=== PATIENT | male | born 1965 | race Caucasian/White ===

== ENCOUNTER 2018-02-14 08:31 | Emergency (ER) | payer BC ==
[2018-02-14 08:47] VITALS: RESP 18
[2018-02-14] MEDS ORDERED: ONDANSETRON ODT 4 MG TAB PO STA (09:04)
[2018-02-14] MEDS ORDERED: SODIUM CHLORIDE 0.9% 1,000 ML IV STA (09:04)
[2018-02-14] MEDS ORDERED: RX INFO: IV CONTRAST WAS GIVEN 1 EACH MISC MISCELLANE PRN (09:04)
[2018-02-14] MEDS ORDERED: MORPHINE SULFATE 4 MG/ML SYRINGE IVP STA (09:05)
--- NOTE | 2018-02-14 09:26 | ED ---
General Adult HPI - General Chief complaint: Extremity Injury, Upper Stated complaint: Head/Back Injury Time Seen by Provider: 02/14/18 08:51 Source: patient, RN notes reviewed Mode of arrival: wheelchair Limitations: no limitations - History of Present Illness Initial comments: Patient 52-year-old male presenting to the emergency room today with a chief complaint of right-sided rib pain. Patient was met that last night he was changing the oil on his truck when it slipped off the [place] came down and landed on the right ribs. He states he sought, normal strength all the way. He states he did not hit his head. He denies any loss conscious. States the truck bounced down on him and he was able to get out from underneath. He states truck did not pin him. Patient admits to pain locally to right lower ribs. Worse with certain movements or if he coughs or sneezes. Patient denies any other complaints. Patient denies any recent fever, chills, shortness of breath, chest pain, back pain, nausea or vomiting, numbness or tingling, dysuria or hematuria, headaches or visual changes, or any other complaints. - Related Data Home Medications Medication Instructions Recorded Confirmed Fish Oil/Dha/Epa [Fish Oil 1,200 1 cap PO DAILY 05/12/14 02/14/18 mg Fish Oil] Lisinopril-Hctz 20-25 mg 1 tab PO DAILY 05/12/14 02/14/18 [Zestoretic 20-25] Aspirin EC [Ecotrin Low Dose] 81 mg PO DAILY 02/14/18 02/14/18 Atorvastatin [Lipitor] 80 mg PO HS 02/14/18 02/14/18 Metoprolol Succinate (ER) [Toprol 100 mg PO DAILY 02/14/18 02/14/18 Xl] Multivitamins, Thera [Multivitamin 1 tab PO DAILY 02/14/18 02/14/18 (formulary)] Previous Rx's Medication Instructions Recorded Ibuprofen [Motrin] 800 mg PO Q6HR #40 tab 02/14/18 Allergies Allergy/AdvReac Type Severity Reaction Status Date / Time No Known Allergies Allergy Verified 02/14/18 09:12 Review of Systems ROS Statement: Those systems with pertinent positive or pertinent negative responses have been documented in the HPI. ROS Other: All systems not noted in ROS Statement are negative. Past Medical History Past Medical History: Hypertension History of Any Multi-Drug Resistant Organisms: None Reported Past Surgical History: Hernia Repair, Orthopedic Surgery Past Psychological History: No Psychological Hx Reported Smoking Status: Current every day smoker Past Alcohol Use History: Occasional Past Drug Use History: None Reported General Exam - General Exam Comments Initial Comments: General: The patient is awake and alert, in no distress, and does not appear acutely ill. Eye: Pupils are equal, round and reactive to light, extra-ocular movements are intact. No nystagmus. There is normal conjunctiva bilaterally. No signs of icterus. Ears, nose, mouth and throat: There are moist mucous membranes and no oral lesions. Neck: The neck is supple, there is no tenderness or JVD. Cardiovascular: There is a regular rate and rhythm. No murmur, rub or gallop is appreciated. Respiratory: Lungs are clear to auscultation, respirations are non-labored, breath sounds are equal. No wheezes, stridor, rales, or rhonchi. Gastrointestinal: Normal appearance abdomen. No ecchymosis or bruising. Discomfort to the right upper quadrant. Locally tender over the ribs with some discomfort in the abdomen in this area. No rebound, guarding, or CVA tenderness. Musculoskeletal: Normal ROM. Normal appearance of the right ribs no step-off appreciated. Patient tender over the right lateral lower ribs. Strength 5/5. Sensation intact. Pulses equal bilaterally 2+. Neurological: A&O x 3. CN II-XII intact, There are no obvious motor or sensory deficits. Coordination appears grossly intact. Speech is normal. Skin: Skin is warm and dry and no rashes or lesions are noted. Psychiatric: Cooperative, appropriate mood & affect, normal judgment. Limitations: no limitations Course Vital Signs 02/14/18 02/14/18 08:44 10:56 Temperature 98.9 F Pulse Rate 89 69 Respiratory 18 18 Rate Blood Pressure 170/90 139/79 O2 Sat by Pulse 95 95 Oximetry Medical Decision Making - Medical Decision Making Patient's labs been reviewed. Patient's CT of the chest 7 pelvis reviewed does show fractures from the fourth to ninth rib on the right side. Does show a contracted gallbladder. Results were discussed with the patient. Patient at this time does not want stay in the hospital like to be discharged home. Patient states that he does not want anything else for pain other than ibuprofen. Patient is advised that she have repeat chest x-ray here advised to return to the emergency room symptoms increase or worsen. Patient will be given a prescription for repeat chest x-ray 5 spots doctor over the next 2 days. - Lab Data Result diagrams: 02/14/18 09:50 02/14/18 09:50 Lab Results 02/14/18 02/14/18 02/14/18 Range/Units 09:50 09:50 10:03 WBC 12.6 H (3.8-10.6) k/uL RBC 4.56 (4.30-5.90) m/uL Hgb 14.7 (13.0-17.5) gm/dL Hct 43.2 (39.0-53.0) % MCV 94.9 (80.0-100.0) fL MCH 32.2 (25.0-35.0) pg MCHC 33.9 (31.0-37.0) g/dL RDW 12.6 (11.5-15.5) % Plt Count 314 (150-450) k/uL Neutrophils % 61 % Lymphocytes % 28 % Monocytes % 5 % Eosinophils % 4 % Basophils % 1 % Neutrophils # 7.6 (1.3-7.7) k/uL Lymphocytes # 3.5 (1.0-4.8) k/uL Monocytes # 0.7 (0-1.0) k/uL Eosinophils # 0.5 (0-0.7) k/uL Basophils # 0.1 (0-0.2) k/uL Sodium 143 (137-145) mmol/L Potassium 4.4 (3.5-5.1) mmol/L Chloride 104 (98-107) mmol/L Carbon Dioxide 24 (22-30) mmol/L Anion Gap 15 mmol/L BUN 16 (9-20) mg/dL Creatinine 0.69 (0.66-1.25) mg/dL Est GFR (CKD-EPI)AfAm >90 (>60 ml/min/1.73 sqM) Est GFR (CKD-EPI)NonAf >90 (>60 ml/min/1.73 sqM) Glucose 107 H (74-99) mg/dL Calcium 9.6 (8.4-10.2) mg/dL Total Bilirubin 0.8 (0.2-1.3) mg/dL AST 49 (17-59) U/L ALT 67 (21-72) U/L Alkaline Phosphatase 85 (38-126) U/L Total Protein 7.3 (6.3-8.2) g/dL Albumin 4.6 (3.5-5.0) g/dL Urine Color Yellow Urine Appearance Clear (Clear) Urine pH 5.5 (5.0-8.0) Ur Specific [place] 1.017 (1.001-1.035) Urine Protein Negative (Negative) Urine Glucose (UA) Negative (Negative) Urine Ketones Negative (Negative) Urine Blood Negative (Negative) Urine Nitrite Negative (Negative) Urine Bilirubin Negative (Negative) Urine Urobilinogen <2.0 (<2.0) mg/dL Ur Leukocyte Esterase Negative (Negative) Disposition Clinical Impression: Multiple rib fractures Disposition: HOME SELF-CARE Condition: Good Additional Instructions: Please have repeat chest x-ray tomorrow. Please follow-up with the family doctor over the next 2 days. Please use pain medication as discussed return here to emergency room if any symptoms increase worsen. Prescriptions: Ibuprofen [Motrin] 800 mg PO Q6HR #40 tab Is patient prescribed a controlled substance at d/c from ED?: No Referrals: Pavan Triana DO [Primary Care Provider] - 1-2 days Time of Disposition: 11:53
[2018-02-14 10:01] LABS: Basophils # (A) 0.1 k/uL (0-0.2); Basophils % (A) 1 %; Eosinophils # (A) 0.5 k/uL (0-0.7); Eosinophils % (A) 4 %; HCT 43.2 % (39.0-53.0); HGB 14.7 gm/dL (13.0-17.5); Lymphocytes # (A) 3.5 k/uL (1.0-4.8); Lymphocytes % (A) 28 %; MCH 32.2 pg (25.0-35.0); MCHC 33.9 g/dL (31.0-37.0); MCV 94.9 fL (80.0-100.0); Mean Platelet Volume 6.7; Monocytes # (A) 0.7 k/uL (0-1.0); Monocytes % (A) 5 %; Neutrophils # (A) 7.6 k/uL (1.3-7.7); Neutrophils % (A) 61 %; Platelet Count 314 k/uL (150-450); RBC 4.56 m/uL (4.30-5.90); RDW 12.6 % (11.5-15.5); WBC 12.6 k/uL (3.8-10.6)
[2018-02-14 10:06] LABS: ALT 67 U/L (21-72); AST 49 U/L (17-59); Albumin 4.6 g/dL (3.5-5.0); Alkaline Phosphatase 85 U/L (38-126); Anion Gap 15 mmol/L; Blood Urea Nitrogen 16 mg/dL (9-20); Calcium 9.6 mg/dL (8.4-10.2); Carbon Dioxide 24 mmol/L (22-30); Chloride 104 mmol/L (98-107); Glucose 107 mg/dL (74-99); Potassium 4.4 mmol/L (3.5-5.1); Sodium 143 mmol/L (137-145); Total Bilirubin 0.8 mg/dL (0.2-1.3); Total Protein 7.3 g/dL (6.3-8.2)
[2018-02-14 10:26] LABS: Appearance,Urine Clear (Clear); Bilirubin,Urine Negative (Negative); Blood,Urine Negative (Negative); Color,Urine Yellow; Glucose,Urine (UA) Negative (Negative); Ketones,Urine Negative (Negative); Leukocyte Esterase,Urine Negative (Negative); Nitrite,Urine Negative (Negative); PH, Urine 5.5 (5.0-8.0); Protein,Urine Negative (Negative); Specific Gravity,Urine 1.017 (1.001-1.035); Urobilinogen,Urine <2.0 mg/dL (<2.0)
--- NOTE | 2018-02-14 11:24 | CT ---
EXAMINATION TYPE: CT ChestAbdPelvis w con DATE OF EXAM: 02/14/2018 COMPARISON: NONE HISTORY: 52-year-old male with right-sided pain, Crush injury to ribs TECHNIQUE: Contiguous axial scanning of the chest, abdomen, and pelvis performed with IV Contrast, pa tient injected with 100 ml mL of Isovue 300. Delayed images through the kidneys were obtained. Grullon l/sagittal reconstructions performed. CT DLP: 2251.6 mGycm Automated exposure control for dose reduction was used. FINDINGS: Chest: Heart normal size without pericardial effusion. Some nondependent air within the right ventricular ap ex likely from peripheral line placement. Aorta normal caliber with conventional chest branching anatomy. There is motion artifact along the ao rtic root and ascending aorta without evidence for dissection. No thoracic lymphadenopathy or mediastinal hematoma. No consolidation, pneumothorax, or pleural effusion. Mild dependent atelectasis is noted. ABDOMEN: Liver enlarged measuring 23.8 cm craniocaudal with diffuse low-attenuation. There is some focal fatty sparing along the lisa hepatis and gallbladder fossa. Gallbladder is hydropic measuring 5.1 cm wide. No surrounding inflammation or wall thickening. Minimal 1.1 cm nodularity along the right adrenal gland statistically represents a benign adrenal kyle noma. The left adrenal gland, spleen, and pancreas appear within normal limits. Subcentimeter hypodensities in both kidneys too small for CT characterization, likely cysts. A larger 1.8 cm cyst is present medially in the left kidney. No dilated small bowel, free fluid, or free air. Mild atelectatic calcifications within the infrarena l abdominal aorta without aneurysm. Scattered nonenlarged mesenteric lymph nodes are present. No mesenteric or retroperitoneal lymphadeno lisseth by CT size criteria. Moderate stool in the right side of the colon. Left hemicolon diverticulos is without pericolonic inflammatory change. Normal appendix. Pelvis: Bladder partially distended. Prostate gland measures 4.7 cm wide. Small amount of fluid seen along th e right inguinal canal and some mildly prominent bilateral external iliac chain lymph nodes measuring up to 9 mm, nonspecific. Bones: Mild degenerative spurring at the hips with some can deformities and slight superior acetabular retro version, right greater than left which can be seen in setting of femoral acetabular impingement syndr ome. A couple old healed fracture deformities along the posterior and posterolateral right lower ribs. Non displaced fractures of the right lateral fourth through ninth ribs. No additional acute fracture seen . IMPRESSION: 1. NONDISPLACED FRACTURES OF THE RIGHT LATERAL FOURTH THROUGH NINTH RIBS. NO UNDERLYING PULMONARY CON TUSION, PLEURAL EFFUSION, OR PNEUMOTHORAX. 2. HEPATOMEGALY (23.8 CM) WITH HEPATIC STEATOSIS. 3. HYDROPIC GALLBLADDER LIKELY DUE TO FASTING STATE. CLINICALLY CORRELATE. 4. LEFT HEMICOLONIC DIVERTICULOSIS WITHOUT ACUTE DIVERTICULITIS.
[2018-02-14 12:13] VITALS: BP 122/69; PULSE 78; TEMP 97.6
== END 2018-02-14 12:13 | disposition home or self-care (01) ==
LOC: EC 08:31
DX: S22.41XA Multiple fractures of ribs, right side, initial encounter for closed fracture (principal); K82.0 Obstruction of gallbladder; I10 Essential (primary) hypertension; F17.200 Nicotine dependence, unspecified, uncomplicated; Z79.82 Long term (current) use of aspirin; Z79.899 Other long term (current) drug therapy; W20.8XXA Other cause of strike by thrown, projected or falling object, initial encounter; Y93.89 Activity, other specified
CPT/HCPCS: 99284; 96360; 36415; 80053; 85025; 81003; 71260; 74177; J2270; Q9967

== ENCOUNTER → 2018-02-15 | Outpatient (CLI) | payer BC ==
--- NOTE | 2018-02-15 15:40 | XR ---
EXAMINATION TYPE: XR chest 2V DATE OF EXAM: 02/15/2018 COMPARISON: 08/06/2011 HISTORY: 52 year-old male multiple fractures, follow-up TECHNIQUE: Frontal and lateral views FINDINGS: Heart normal size. Aorta and pulmonary vasculature within normal limits. Mild diffuse interstitial pr ominence. Multiple bilateral rib fracture deformities. Prominent right first rib and. Strandy atelect asis lower lungs. No consolidation or pleural effusion. IMPRESSION: Multiple bilateral rib fractures appear chronic. The known nondisplaced acute fourth through ninth ri b fractures on the right are not well seen. No acute cardiopulmonary process.
== END | disposition home or self-care (01) ==
LOC: RADXRYALE 15:20
PROVIDERS: ATTEND Physician Assistant
DX: S22.43XD Multiple fractures of ribs, bilateral, subsequent encounter for fracture with routine healing (principal)
CPT/HCPCS: 71046

== ENCOUNTER → 2018-02-20 | Outpatient (CLI) | payer BC ==
--- NOTE | 2018-02-20 16:52 | XR ---
EXAMINATION TYPE: PA chest with right rib series DATE OF EXAM: 02/20/2018 COMPARISON: 02/15/[address] 02/14/2018 HISTORY: 52-year-old male multiple rib fractures after truck fell on chest TECHNIQUE: Frontal and lateral views FINDINGS: Heart normal size. Aorta and pulmonary vasculature within normal limits. No consolidation, pneumothor ax, or pleural effusion. Nondisplaced fourth lateral refracture is now seen. The fifth lateral rib fracture shows mild interv al displacement. Lateral 6 through ninth rib fractures remain largely nondisplaced. The eighth rib fr acture shows minimal interval distraction. Other old healed lower right-sided rib fracture deformities. IMPRESSION: No acute cardiopulmonary process. Unhealed lateral right-sided rib fractures, fourth rib through ninth rib. The fifth lateral rib fracture shows mild interval displacement and the eighth rib fracture shows mi nimal interval distraction. The remaining fractures remain nondisplaced.
== END | disposition home or self-care (01) ==
LOC: RADXRYALE 15:40
PROVIDERS: ATTEND Family Medicine
DX: S22.41XG Multiple fractures of ribs, right side, subsequent encounter for fracture with delayed healing (principal)

== ENCOUNTER → 2018-03-27 | Outpatient (CLI) | payer BC, OTHER ==
--- NOTE | 2018-03-27 11:49 | XR ---
EXAMINATION TYPE: XR ribs RT w pa chest xray DATE OF EXAM: 03/27/2018 COMPARISON: 02/20/2018 HISTORY: Follow-up rib fractures TECHNIQUE: 2 view right ribs submental with a frontal chest FINDINGS: Old rib fractures are present on the right at 5, 6 and 7. Rib 4 and rib 8 and 9 fractures a re not well visualized on this exam. Calcified formation is evident. Some lower old rib fractures may also be present. No pneumothorax is evident. IMPRESSION: 1. Healing right rib fractures lateral right mid ribs.
== END | disposition home or self-care (01) ==
LOC: RADXRYALE 08:49
PROVIDERS: ATTEND Family Medicine
DX: S22.41XD Multiple fractures of ribs, right side, subsequent encounter for fracture with routine healing (principal)

== ENCOUNTER → 2023-11-24 | Outpatient (CLI) | payer BC ==
--- NOTE | 2023-11-24 12:14 | CTL ---
EXAMINATION TYPE: CT Low Dose Lung DATE OF EXAM ORDERED: 11/24/2023 HISTORY: Nicotine dependence. Lung cancer screening CT DLP: 131.[address] CTDI: 3.6 mGy Automated exposure control for dose reduction was used. SCREENING VISIT: Initial COMPARISON: None TECHNIQUE: Low dose computed tomography scan was performed through the chest at 1 mm thick sections a nd reconstructed images in the coronal plane at [address] DIAGNOSTIC QUALITY: Satisfactory FINDINGS: LUNG NODULES: None. LUNGS: COPD: Severity: None Fibrosis: Severity: None Lymph nodes: Scattered bilateral axillary lymph nodes are present. Some axillary lymph nodes are grea ter than 1 cm Scattered small mediastinal lymph nodes are present. Enlarged lymphadenopathy is not ot herwise identified. Other findings: None RIGHT PLEURAL SPACE: Effusion: None Calcification: None Thickening: None Pneumothorax: None LEFT PLEURAL SPACE: Effusion: None Calcification: None Thickening: None Pneumothorax: None HEART: Heart Size: Normal Coronary calcification: Minimal Pericardial effusion: None OTHER FINDINGS: Upper abdomen: Normal Bony thorax: Normal Supraclavicular region: Normal Other: Ascending thoracic aorta at the level the main pulmonary artery measures 3.9 cm. The main pul monary artery at the bifurcation measures 3.1 cm. IMPRESSION: 1. No suspicious intrathoracic abnormalities. 2. Mild axillary lymphadenopathy bilaterally. Consider follow-up. FOLLOW UP CT CHEST RECOMMENDATION: Follow-up CT chest in [address] LUNG RAD: Lung-Rad 3 Probably Benign
== END | disposition home or self-care (01) ==
LOC: RADCTMAIN 09:28
PROVIDERS: ATTEND Family Medicine
DX: Z12.2 Encounter for screening for malignant neoplasm of respiratory organs (principal); F17.210 Nicotine dependence, cigarettes, uncomplicated; R59.0 Localized enlarged lymph nodes
CPT/HCPCS: 71271

== ENCOUNTER → 2024-05-03 | Outpatient (CLI) | payer BC ==
--- NOTE | 2024-05-03 09:58 | MR ---
EXAMINATION TYPE: MR brain wo con DATE OF EXAM: 05/03/2024 9:10 AM CLINICAL INDICATION:Male, 58 years old with history of R51.9 HEADACHE, UNSPECIFIED, Headaches, essent ial hypertension, lymphocytosis, hyperlipidemia, other elevated WBC COMPARISON: None TECHNIQUE: Multi planar, multi sequence imaging was performed through the brain including: T1, T2, In version recovery, Diffusion weighted imaging, and gradient echo imaging. No gadolinium was given. FINDINGS: High T1/high T2 signal elongated lesion sitting just superior to the corpus callosum which saturates out on fat suppression FLAIR imaging. Findings most suggestive of lipoma. Area measures rou ghly 4.8 x 0.5 cm on sagittal imaging. The vital-white junctions, ventricular system, basal cisterns appear unremarkable. Scattered foci of high T2 signal intensity are seen within the periventricular white matter. Midline structures show no abnormality. Diffusion-weighted imaging shows no evidence o f restricted diffusion. The susceptibility weighted images do not reveal any evidence for micro-hemor rhage. The bone marrow signal is within normal limits. Paranasal sinuses and mastoid air cells: No significant paranasal sinus disease. Visualized orbits: Orbital contents are intact. IMPRESSION: 1. No evidence of intracranial mass or acute/subacute infarct. 2. Nonspecific white matter changes, likely secondary to small vessel ischemic disease. 3. 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
== END | disposition home or self-care (01) ==
LOC: RADMRIMAIN 08:15
PROVIDERS: ATTEND Internal Medicine
DX: R51.9 Headache, unspecified (principal); I10 Essential (primary) hypertension; D72.820 Lymphocytosis (symptomatic); D72.828 Other elevated white blood cell count; E78.5 Hyperlipidemia, unspecified; D17.79 Benign lipomatous neoplasm of other sites
CPT/HCPCS: 70551